=== PATIENT | female | born 1980 | race Caucasian/White ===

== ENCOUNTER 2017-08-20 10:03 | Emergency (ER) | payer BC ==
[2017-08-20 10:15] VITALS: TEMP 97.9
[2017-08-20] MEDS ORDERED: ALUM & MAG HYDROX-SIMETHICONE 30 ML, LIDOCAINE VISCOUS 2% 15 ML PO ONE ×2 (10:16)
[2017-08-20] MEDS ORDERED: ALUM & MAG HYDROX-SIMETHICONE 30 ML UD ONE (10:16)
[2017-08-20] MEDS ORDERED: ONDANSETRON ODT 8 MG TAB SL ONE (10:16)
[2017-08-20] MEDS ORDERED: LIDOCAINE HCL 2% (MOUTH-THROAT) 15 ML UD ONE (10:16)
[2017-08-20] MEDS ORDERED: SUCRALFATE 1 GM/10 ML 1 GM UD PO ONE (10:16)
--- NOTE | 2017-08-20 10:49 | RAD ---
EXAM DESCRIPTION: Obstructive series, 3 radiographs CLINICAL HISTORY: Epigastric abdominal pain. Shortness of breath FINDINGS/ IMPRESSION: Normal cardiomediastinal silhouette. No pulmonary edema, alveolar infiltrate or effusion Scattered large and small intestinal bowel gas without evidence of mechanical bowel obstruction. Moderate amount of stool in the colon, constipation. No organomegaly or obvious abdominal mass lesion. Surgical clips from previous cholecystectomy Electronically signed by: Reg Banuelos MD 08/20/2017 10:47 AM CDT
--- NOTE | 2017-08-20 11:49 | ED.PDOC ---
History of Present Illness - General Chief Complaint: Abdominal Pain Stated Complaint: midepigastric pain Time Seen by Provider: 08/20/17 10:12 Source: patient Exam Limitations: no limitations - History of Present Illness Initial Comments: the patient is a 36-year-old female presenting to the emergency room secondary to an episode of epigastric discomfort that was severe this morning coming on fairly abruptly. She has had multiple episodes like this over the last years. She has had multiple workups and is currently still undergoing workup with gastroenterology. She recently had a CT scan of her abdomen and pelvis along with an upper endoscopy failed to show any definitive problem. 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 She had a gallbladder taken out 4 years ago and has apparently had episodes since that time. She has been unable to tie it to any dietary changes. She did take a dose of tizanidine, and Advil this morning for her back issues. She has been on tizanidine for the last 3 years. She does not currently have anything to take to help with the pain when it occurs.she is not actually having any chest pain. When the pain is at its worst it does seem to take her breath away and she oxygenates just fine. No evidence of any arrhythmia on telemetry.the pain radiates from the epigastric and just right of the epigastric area through to her back to about 3 inches lateral of the spine on the right at the same level. Timing/Duration: 1/2 hour Severity: severe Improving Factors: nothing Worsening Factors: nothing Associated Symptoms: diaphoresis, loss of appetite, malaise, nausea/vomiting Allergies/Adverse Reactions: Allergies Morphine Adverse Reaction (Verified 12/19/13 13:57) Home Medications: Ambulatory Orders Escitalopram [Lexapro] 10 mg PO DAILY 12/02/13 Fexofenadine-Pseudoephedrine [Brianna-D 24 Hour Allergy 180-240 mg] 1 tab PO DAILY 12/02/13 Fluticasone Prop 0.05% Nasal [Flonase Nasal [place]] 1 spray BNAS BID 12/02/13 Lorazepam [Ativan] 1 mg PO BID PRN 12/02/13 Acetaminophen W/ Codeine [Tylenol W/ CODEINE #3] 1 - 2 units PO Q6HRS PRN #30 12/19/13 Methylprednisolone [Medrol Dose Jose[place]] 4 mg PO DAILY 8 Days tab 11/07/14 tiZANidine [Zanaflex] 4 mg PO Q6-8H PRN #30 tab 12/19/13 Hyoscyamine Sulfate [Hyoscyamine Sulfate Odt] 0.125 mg PO Q6H PRN #20 tab Nitroglycerin [Nitrostat] 0.4 mg SL Q5MIN PRN #1 bottle 08/20/17 Ondansetron [Zofran Odt] 4 mg PO Q4H PRN #10 tab 08/20/17 Review of Systems - Review of Systems Constitutional: States: no symptoms reported EENTM: States: no symptoms reported Respiratory: States: no symptoms reported Cardiology: States: no symptoms reported Gastrointestinal/Abdominal: States: abdominal pain, nausea. Denies: vomiting Genitourinary: States: no symptoms reported Musculoskeletal: States: no symptoms reported Skin: States: no symptoms reported Neurological: States: no symptoms reported All other Systems: No Change from Baseline Past Medical History (General) - Patient Medical History Hx Stroke: No Hx Congestive Heart Failure: No Hx Diabetes: No Surgical History: appendectomy, cholecystectomy, Hysterectomy - Vaccination History Hx Influenza Vaccination: No Hx Pneumococcal Vaccination: No - Social History Hx Tobacco Use: Yes Hx Depression: Yes Family Medical History - Family History Mother Family History: No Known Living Status: Still Living Physical Exam - Physical Exam General Appearance: Alert, Anxious Eye Exam: bilateral normal Ears, Nose, Throat: hearing grossly normal, normal ENT inspection Neck: full range of motion, supple Respiratory: lungs clear, normal breath sounds, no respiratory distress, no accessory muscle use Cardiovascular/Chest: normal peripheral pulses, regular rate, rhythm, no edema Peripheral Pulses: radial,right: 2+, radial,left: 2+ Gastrointestinal/Abdominal: soft, other - she does have epigastric discomfort palpation. No rebound or peritoneal signs. Rectal Exam: deferred Back Exam: normal inspection, no CVA tenderness, no vertebral tenderness Extremity: normal range of motion, non-tender, normal inspection, no pedal edema , normal capillary refill Neurologic: shank stitcher II-XII nml as tested, alert, normal mood/affect, oriented x 3 Skin Exam: normal color Comments: Vital Signs - 24 hr 08/20/17 08/20/17 08/20/17 10:06 10:10 10:43 Temperature 97.9 F Pulse Rate [ 82 75 right brachial] Respiratory 20 14 18 Rate Blood Pressure 124/82 123/76 [right brachial ] O2 Sat by Pulse 100 97 Oximetry 08/20/17 11:17 Temperature Pulse Rate [ 66 right brachial] Respiratory 16 Rate Blood Pressure 113/60 [right brachial ] O2 Sat by Pulse 99 Oximetry Progress - Progress Progress: 08/20/17 11:59 the patient is a 36-year-old female presenting to emergency room secondary to severe acute onset epigastric pain with radiation towards the right back. The tentative diagnosis on this patient for these recurrent episodes is spasm of the sphincter of oddi. This does seem to fit her symptoms quite well upon review of this disorder. She does need to continue her workup with gastroenterology. To that end she will also be written for some sublingual nitroglycerin to use at the onset of any acute severe attack and she has been instructed on how to take this. Additionally she will be written for Zofran ODT 's for as needed use for a similar purpose. She will also be written for Levbid to take for the 24-48 hours during and after an attack to hopefully help reduce symptoms. All of these medications do of course come with the potential of side effects and she has not apparently tried these before so she will need to be mindful when she takes them. She does need follow-up with her primary care doctor later this week. If she is continuing to have some lingering symptoms then repeat lab work to test for liver function tests and pancreatic enzymes may be worthwhile. additionally the patient has been instructed to hold her tizanidine for at least a couple of weeks and see if this helps reduce frequency of these symptoms. It is possible that this medication may be causing some additional spasm of the sphincter of oddi. ER warnings were given for any significant worsening. - Results/Orders Results/Orders: acute abdominal series fails to show anysignificant acute pathology. She does have mild constipation. EKG shows normal sinus rhythm at a rate of 74 bpm. There is possibly very early right bundle branch block starting. She does have mild left atrial dilation. No acute ST segment changes concerning for ischemia. Laboratory Tests 08/20/17 08/20/17 08/20/17 10:25 10:25 10:25 WBC 8.2 RBC 4.67 Hgb 14.7 Hct 43.1 MCV 92.4 MCH 31.5 H MCHC 34.1 RDW 12.9 Plt Count 153 MPV 8.8 Absolute Neuts (auto) 5.70 Absolute Lymphs (auto) 1.90 Absolute Monos (auto) 0.40 Absolute Eos (auto) 0.20 Absolute Basos (auto) 0.00 Neutrophils % 69.7 Lymphocytes % 22.9 Monocytes % 4.9 Eosinophils % 2.0 Basophils % 0.5 PT 10.7 INR 0.920 PTT (SP) 33.5 D-Dimer, Quantitative 288 H* Sodium 138 Potassium 3.8 Chloride 106 Carbon Dioxide 25 Anion Gap 10.8 L BUN 17 Creatinine 0.74 BUN/Creatinine Ratio 23.0 H Random Glucose 106 H Serum Osmolality 277.6 Calcium 9.5 Total Bilirubin 0.6 AST 38 ALT 24 Alkaline Phosphatase 77 Creatine Kinase 49 CK-MB (CK-2) 1.2 CK-MB (CK-2) % Not Reportable Troponin I < 0.02 B-Natriuretic Peptide 27.8 Serum Total Protein 6.8 Albumin 4.6 Globulin 2.2 L Albumin/Globulin Ratio 2.1 H Amylase 56 Lipase Urine Color Urine Appearance Urine pH Ur Specific [place] Urine Protein Urine Glucose (UA) Urine Ketones Urine Blood Urine Nitrite Urine Bilirubin Urine Urobilinogen Ur Leukocyte Esterase Urine RBC Urine WBC Ur Epithelial Cells Urine Bacteria Urine HCG, Qual 08/20/17 08/20/17 08/20/17 10:25 11:11 11:15 WBC RBC Hgb Hct MCV MCH MCHC RDW Plt Count MPV Absolute Neuts (auto) Absolute Lymphs (auto) Absolute Monos (auto) Absolute Eos (auto) Absolute Basos (auto) Neutrophils % Lymphocytes % Monocytes % Eosinophils % Basophils % PT INR PTT (SP) D-Dimer, Quantitative Sodium Potassium Chloride Carbon Dioxide Anion Gap BUN Creatinine BUN/Creatinine Ratio Random Glucose Serum Osmolality Calcium Total Bilirubin AST ALT Alkaline Phosphatase Creatine Kinase CK-MB (CK-2) CK-MB (CK-2) % Troponin I B-Natriuretic Peptide Serum Total Protein Albumin Globulin Albumin/Globulin Ratio Amylase Lipase 41 Urine Color Yellow Urine Appearance Clear Urine pH 7.0 Ur Specific [place] 1.015 Urine Protein Negative Urine Glucose (UA) Negative Urine Ketones Negative Urine Blood Negative Urine Nitrite Negative Urine Bilirubin Negative Urine Urobilinogen 0.2 Ur Leukocyte Esterase Negative Urine RBC 0 Urine WBC 0 Ur Epithelial Cells 1-3 Urine Bacteria 0 Urine HCG, Qual Negative Departure - Departure Clinical Impression: Sphincter of Oddi dysfunction Disposition: Discharge to Home or Self Care Condition: Fair Departure Forms: ED Discharge - Pt. Copy, Patient Portal Self Enrollment Instructions: DI for Abdominal Pain-Adult Diet: regular diet Activity: increase activity as tolerated Referrals: ROCCO GRUBBS [Primary Care Provider] - 1-5 Days Prescriptions: Nitroglycerin [Nitrostat] 0.4 mg SL Q5MIN PRN #1 bottle PRN Reason: Abdominal Distress Hyoscyamine Sulfate [Hyoscyamine Sulfate Odt] 0.125 mg PO Q6H PRN #20 tab PRN Reason: Abdominal Distress Ondansetron [Zofran Odt] 4 mg PO Q4H PRN #10 tab PRN Reason: Vomiting Home Medications: Ambulatory Orders Escitalopram [Lexapro] 10 mg PO DAILY 12/02/13 Fexofenadine-Pseudoephedrine [Brianna-D 24 Hour Allergy 180-240 mg] 1 tab PO DAILY 12/02/13 Fluticasone Prop 0.05% Nasal [Flonase Nasal [place]] 1 spray BNAS BID 12/02/13 Lorazepam [Ativan] 1 mg PO BID PRN 12/02/13 Acetaminophen W/ Codeine [Tylenol W/ CODEINE #3] 1 - 2 units PO Q6HRS PRN #30 12/19/13 Methylprednisolone [Medrol Dose [place]] 4 mg PO DAILY 8 Days tab 12/19/13 tiZANidine [Zanaflex] 4 mg PO Q6-8H PRN #30 tab 12/19/13 Hyoscyamine Sulfate [Hyoscyamine Sulfate Odt] 0.125 mg PO Q6H PRN #20 tab Nitroglycerin [Nitrostat] 0.4 mg SL Q5MIN PRN #1 bottle 08/20/17 Ondansetron [Zofran Odt] 4 mg PO Q4H PRN #10 tab 08/20/17 Additional Instructions: the patient is a 36-year-old female presenting to emergency room secondary to severe acute onset epigastric pain with radiation towards the right back. The tentative diagnosis on this patient for these recurrent episodes is spasm of the sphincter of oddi. This does seem to fit her symptoms quite well upon review of this disorder. She does need to continue her workup with gastroenterology. To that end she will also be written for some sublingual nitroglycerin to use at the onset of any acute severe attack and she has been instructed on how to take this. Additionally she will be written for Zofran ODT 's for as needed use for a similar purpose. She will also be written for Levbid to take for the 24-48 hours during and after an attack to hopefully help reduce symptoms. All of these medications do of course come with the potential of side effects and she has not apparently tried these before so she will need to be mindful when she takes them. She does need follow-up with her primary care doctor later this week. If she is continuing to have some lingering symptoms then repeat lab work to test for liver function tests and pancreatic enzymes may be worthwhile. additionally the patient has been instructed to hold her tizanidine for at least a couple of weeks and see if this helps reduce frequency of these symptoms. It is possible that this medication may be causing some additional spasm of the sphincter of oddi. ER warnings were given for any significant worsening.
[2017-08-20 11:54] VITALS: O2SAT 96
[2017-08-20 12:36] VITALS: BP 103/63
== END 2017-08-20 12:14 | disposition home or self-care (01) ==
LOC: ER 10:03
DX: K83.0 Cholangitis (principal); Z87.891 Personal history of nicotine dependence; Z88.6 Allergy status to analgesic agent

== ENCOUNTER 2018-12-04 20:44 | Emergency (ER) | payer BC, OTHER ==
[2018-12-04 20:55] VITALS: TEMP 97.9
[2018-12-04] MEDS ORDERED: diazePAM 5 MG TAB PO ONE (21:43)
[2018-12-04] MEDS ORDERED: PROMETHAZINE HCL 25 MG TAB PO ONE (21:43)
[2018-12-04] MEDS ORDERED: KETOROLAC TROMETHAMINE INJ 30 MG/ML VIAL IM ONE (21:43)
[2018-12-04 21:57] VITALS: O2SAT 96
--- NOTE | 2018-12-04 21:59 | ED.PDOC ---
History of Present Illness - General Chief Complaint: Headache Stated Complaint: headache Time Seen by Provider: 12/04/18 20:44 Source: patient Exam Limitations: no limitations - History of Present Illness Initial Comments: the patient is a 38-year-old female presenting to the emergency room secondary to a worsening today of her chronic refractory headaches. The patient has had numerous vague neurological symptoms tied to her headaches over the last year. She has seen at least 5 specialist over the last year. 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 She just started the steroid today. Headache is in the typical pattern however little bit worse in severity. She does have tightness to her posterior occipital area. She also has what sounds like a mild neuralgic component tothe left side of her face extending from her ear. She reports that her Cymbalta does help a little bit. She also takes Robaxin and Ativan. She takes Motrin as well.the patient has had several MRIs and CTs as well. Timing/Duration: unsure - constant but worse today Severity: severe Improving Factors: nothing Worsening Factors: movement Associated Symptoms: loss of appetite Allergies/Adverse Reactions: Allergies Morphine Adverse Reaction (Verified 12/19/13 13:57) Home Medications: Ambulatory Orders Escitalopram [Lexapro] 10 mg PO DAILY 12/02/13 Fexofenadine-Pseudoephedrine [Brianna-D 24 Hour Allergy 180-240 mg] 1 tab PO DAILY 12/02/13 Fluticasone Prop 0.05% Nasal [Flonase Nasal [place]] 1 spray BNAS BID 12/02/13 Lorazepam [Ativan] 1 mg PO BID PRN 12/02/13 Acetaminophen W/ Codeine [Tylenol W/ CODEINE #3] 1 - 2 units PO Q6HRS PRN #30 12/19/13 Methylprednisolone [Medrol Dose [place]] 4 mg PO DAILY 8 Days tab 12/19/13 tiZANidine [Zanaflex] 4 mg PO Q6-8H PRN #30 tab 12/19/13 Hyoscyamine Sulfate [Hyoscyamine Sulfate Odt] 0.125 mg PO Q6H PRN #20 tab 08/20/17 Nitroglycerin [Nitrostat] 0.4 mg SL Q5MIN PRN #1 bottle 08/20/17 Ondansetron [Zofran Odt] 4 mg PO Q4H PRN #10 tab 08/20/17 Acetazolamide 125 mg PO BID #30 tab 12/04/18 Baclofen 5 mg PO Q8HR PRN #45 tab 12/04/18 Review of Systems - Review of Systems Constitutional: States: no symptoms reported EENTM: States: nose congestion Respiratory: States: no symptoms reported Cardiology: States: no symptoms reported Gastrointestinal/Abdominal: States: no symptoms reported Genitourinary: States: no symptoms reported Musculoskeletal: States: no symptoms reported Skin: States: no symptoms reported Neurological: States: see HPI, headache, paresthesia Endocrine: States: no symptoms reported All other Systems: No Change from Baseline Past Medical History (General) - Patient Medical History Hx Stroke: No Hx Congestive Heart Failure: No Hx Diabetes: No Surgical History: appendectomy, cholecystectomy, tonsillectomy, Hysterectomy - Vaccination History Hx Influenza Vaccination: No Hx Pneumococcal Vaccination: No - Social History Hx Tobacco Use: Yes Hx Depression: Yes Family Medical History - Family History Mother Family History: No Known Living Status: Still Living Physical Exam - Physical Exam General Appearance: Alert, Other - uncomfortable. She prefers the lights off. Eye Exam: bilateral normal Ears, Nose, Throat: hearing grossly normal, normal pharynx Neck: full range of motion, other - [place] occipital tenderness to palpation. Respiratory: no respiratory distress, no accessory muscle use Cardiovascular/Chest: normal peripheral pulses, no edema Peripheral Pulses: radial,right: 2+, radial,left: 2+ Gastrointestinal/Abdominal: non tender, soft Rectal Exam: deferred Extremity: normal range of motion, no pedal edema, normal capillary refill Neurologic: pitch flaker II-XII nml as tested, alert, normal mood/affect, oriented x 3 Skin Exam: normal color Comments: Vital Signs - 24 hr 12/04/18 12/04/18 20:48 21:44 Temperature 97.9 F Pulse Rate [ 86 68 Left Apical] Respiratory 18 14 Rate Blood Pressure 126/84 123/78 [Left Arm] O2 Sat by Pulse 98 96 Oximetry Progress - Progress Progress: 12/04/18 22:04 the patient is a 38-year-old female presenting to the emergency room secondary to an acute exacerbation of her chronic headaches. Source of the headaches is not entirely certain. she is apparently working with multiple specialists to try and address this. There does at least appear to be a tension component based on the occipital symptoms. I would recommend that she see a neurologist and try Botox injections to help with that part of it. There does appear to be a neuralgia component as well to the left side of the face. The Cymbalta that she is on may be helping with that and they can look towards increasing the dose of that medication to help her in the long run. Along those same lines, a trial of a month or so of Valtrex may help to reduce symptoms the neuralgia is indeed being exacerbated by a viral origin. I do recommend that she complete her course of steroid and antibiotic for the sphenoid cyst. Certainly a large enough cyst in that area can cause significant varied symptoms. Additionally she may want to talk with her primary care doctor about getting tested for Lyme's disease. It can certainly cause recurrent headaches with varied symptoms as well, and can plague patients for an extended period of time. Tonight the patient is receiving a large dose of Toradol, a dose of oral Phenergan and a dose of oral Valium. This is simply abortive therapy for the current headache. I will write the patient for a trial of a week's worth of baclofen to take in place of her Robaxin to see if that helps more with her symp toms. She is not to combine these 2 medications. Additionally, after the patient has completed her course of steroid and antibiotic, if she is not doing better then she can fill a prescription for low-dose Acetazolamide to take for a couple of weeks to see if this impacts her headache frequency as well. ER warnings were given. Keep follow-up with specialists and primary care doctor. matt [email or web address] [id number] Departure - Departure Clinical Impression: Headache Qualifiers: Headache type: unspecified Headache chronicity pattern: chronic headache Intractability: intractable Qualified Code(s): R51 - Headache Disposition: Discharge to Home or Self Care Condition: Fair Departure Forms: ED Discharge - Pt. Copy, Patient Portal Self Enrollment Diet: regular diet Activity: increase activity as tolerated Referrals: Corby Esquivel MD [Primary Care Provider] - 1-2 Weeks Prescriptions: Baclofen 5 mg PO Q8HR PRN #45 tab PRN Reason: Muscle Spasms Acetazolamide 125 mg PO BID #30 tab Home Medications: Ambulatory Orders Escitalopram [Lexapro] 10 mg PO DAILY 12/02/13 Fexofenadine-Pseudoephedrine [Brianna-D 24 Hour Allergy 180-240 mg] 1 tab PO DAILY 12/02/13 Fluticasone Prop 0.05% Nasal [Flonase Nasal [place]] 1 spray BNAS BID 12/02/13 Lorazepam [Ativan] 1 mg PO BID PRN 12/02/13 Acetaminophen W/ Codeine [Tylenol W/ CODEINE #3] 1 - 2 units PO Q6HRS PRN #30 12/19/13 Methylprednisolone [Medrol Dose [place]] 4 mg PO DAILY 8 Days tab 12/19/13 tiZANidine [Zanaflex] 4 mg PO Q6-8H PRN #30 tab 12/19/13 Hyoscyamine Sulfate [Hyoscyamine Sulfate Odt] 0.125 mg PO Q6H PRN #20 tab 08/20/17 Nitroglycerin [Nitrostat] 0.4 mg SL Q5MIN PRN #1 bottle 08/20/17 Ondansetron [Zofran Odt] 4 mg PO Q4H PRN #10 tab 08/20/17 Acetazolamide 125 mg PO BID #30 tab 12/04/18 Baclofen 5 mg PO Q8HR PRN #45 tab 12/04/18 Additional Instructions: the patient is a 38-year-old female presenting to the emergency room secondary to an acute exacerbation of her chronic headaches. Source of the headaches is not entirely certain. she is apparently working with multiple specialists to try and address this. There does at least appear to be a tension component based on the occipital symptoms. I would recommend that she see a neurologist and try Botox injections to help with that part of it. There does appear to be a neuralgia component as well to the left side of the face. The Cymbalta that she is on may be helping with that and they can look towards increasing the dose of that medication to help her in the long run. Along those same lines, a trial of a month or so of Valtrex may help to reduce symptoms the neuralgia is indeed being exacerbated by a viral origin. I do recommend that she complete her course of steroid and antibiotic for the sphenoid cyst. Certainly a large enough cyst in that area can cause significant varied symptoms. Additionally she may want to talk with her primary care doctor about getting tested for Lyme's disease. It can certainly cause recurrent headaches with varied symptoms as well, and can plague patients for an extended period of time. Tonight the patient is receiving a large dose of Toradol, a dose of oral Phenergan and a dose of oral Valium. This is simply abortive therapy for the current headache. I will write the patient for a trial of a week's worth of baclofen to take in place of her Robaxin to see if that helps more with her symptoms. She is not to combine these 2 medications. Additionally, after the patient has completed her course of steroid and antibiotic, if she is not doing better then she can fill a prescription for low-dose Acetazolamide to take for a couple of weeks to see if this impacts her headache frequency as well. ER warnings were given. Keep follow-up with specialists and primary care doctor.
[2018-12-04 22:09] VITALS: BP 115/69
== END 2018-12-04 22:20 | disposition home or self-care (01) ==
LOC: ER 20:44
DX: R51 Headache (principal); R20.2 Paresthesia of skin; J34.1 Cyst and mucocele of nose and nasal sinus; F32.9 Major depressive disorder, single episode, unspecified; Z87.891 Personal history of nicotine dependence; Z79.899 Other long term (current) drug therapy; Z88.5 Allergy status to narcotic agent
CPT/HCPCS: J1885; Q0169

== ENCOUNTER 2019-03-18 10:15 | Emergency (ER) | payer OTHER ==
--- NOTE | 2019-03-18 10:54 | ED.PDOC ---
History of Present Illness - General Chief Complaint: General Stated Complaint: Head, neck, chest discomfort Time Seen by Provider: 03/18/19 10:19 Source: patient Exam Limitations: no limitations - History of Present Illness Initial Comments: The patient is a 38-year-old female presents emergency room secondary to multiple symptoms. I have seen this patient twice before over the last couple of years. Each time the patient presents with varied and fairly difficult to explain symptoms. The patient has chronic abdominal pain issues as well as chronic neck and headache pain issues. She reports having seen 2 neurologist in the past with CTs and MRIs with them. No definitive etiology for her headaches and neck pain has been found. She takes daily Cymbalta, Robaxin and Ativan. She does have depression issues which complicate the picture. Her affect is flat. The patient reports that she has been having vague chest discomfort that have radiated to her back and left shoulder for varying amounts of time over the last month. No real nausea or vomiting. Pain is dull. No palpitations. No shortness of breath. It is not worse with activity. The pain can come on with activity or when she is at rest. It does not matter if she is lying sitting or standing. No syncope. Additionally the patient is reporting an acute exacerbation of her chronic neck pain. She reports that she simply turned her head to the left a couple of nights ago and has had persistent pain at the atlantooccipital joint primarily on the left but now with some irritation to the right as well. No new focal neurological changes. No trauma. Timing/Duration: unsure Severity: mild Improving Factors: nothing Worsening Factors: movement - Of the head Associated Symptoms: chest pain, headaches, malaise Allergies/Adverse Reactions: Allergies Morphine Adverse Reaction (Verified 03/18/19 10:43) Home Medications: Ambulatory Orders Escitalopram [Lexapro] 10 mg PO DAILY 12/02/13 Fexofenadine-Pseudoephedrine [Brianna-D 24 Hour Allergy 180-240 mg] 1 tab PO DAILY 12/02/13 Fluticasone Prop 0.05% Nasal [Flonase Nasal [place]] 1 spray BNAS BID 12/02/13 Lorazepam [Ativan] 1 mg PO BID PRN 12/02/13 Sucralfate Tab [Carafate Tab] 1 gm PO QID #60 tab 03/18/19 predniSONE [Prednisone] 20 mg PO DAILY #3 tab 03/18/19 Review of Systems - Review of Systems Constitutional: States: malaise EENTM: States: ear pain - Ear fullness Respiratory: States: no symptoms reported Cardiology: States: chest pain Gastrointestinal/Abdominal: States: no symptoms reported Genitourinary: States: no symptoms reported Musculoskeletal: States: back pain, neck pain Skin: States: no symptoms reported Neurological: States: see HPI, depressed Endocrine: States: no symptoms reported All other Systems: No Change from Baseline Past Medical History (General) - Patient Medical History Hx Stroke: No Hx Congestive Heart Failure: No Hx Diabetes: No - Vaccination History Hx Influenza Vaccination: No Hx Pneumococcal Vaccination: No - Social History Hx Tobacco Use: Yes Hx Depression: Yes Family Medical History - Family History Mother Family History: No Known Living Status: Still Living Physical Exam - Physical Exam General Appearance: Alert, No apparent distress Eye Exam: bilateral normal Ears, Nose, Throat: hearing grossly normal, other - There is pressure behind bilateral tympanic membranes but no obvious infection. Neck: other - Mild tenderness to palpation to the left side of the occipital base. No gross deformity. No obvious instability. No central tenderness to palpation. Respiratory: lungs clear, normal breath sounds, no respiratory distress, no accessory muscle use Cardiovascular/Chest: normal peripheral pulses, regular rate, rhythm, no edema Peripheral Pulses: radial,right: 2+, radial,left: 2+ Gastrointestinal/Abdominal: non tender, soft Rectal Exam: deferred Back Exam: other - Mild diffuse discomfort to palpation over her back which is not new. No obvious new deformity. 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 No obvious gross muscle weakness or sensory loss. Skin Exam: normal color Comments: Vital Signs - 24 hr 03/18/19 03/18/19 10:20 10:49 Temperature 97.3 F L Pulse Rate [ 68 74 Apical] Respiratory 16 16 Rate Blood Pressure 113/78 129/84 [Left Arm] O2 Sat by Pulse 100 98 Oximetry Progress - Progress Progress: 03/18/19 11:50 The patient is a 38-year-old female presenting with several different issues. The first is what appears to be a mild acute myofascial strain primarily to the left upper paracervical musculature. The patient received a dose of Toradol and prednisone here. She is going to be placed on 3 additional days of prednisone as an outpatient. She is already taking Ativan and Robaxin as muscle relaxers. Topical heat, stretching may help as well. The patient also presented with atypical chest pain of an extended intermittent duration. EKG, lab work and chest x-rays are reassuring. This is unlikely of a cardiac source. There is a possibility this may be coming from the upper intestinal tract with referral so the patient is going to be written for some Carafate for the next few weeks as a trial. If her symptoms are not improving then she can see her primary care doctor about getting set up for an exercise tolerance test, though her risk factors seem low. I do recommend that she follow-up with her primary care doctor within a week or 2. ER warnings were given. matt [email or web address] [id number] - Results/Orders Results/Orders: 03/18/19 10:42 Telemetry .CONTINUOUS Vital Signs-Tilt PRN 03/18/19 10:45 EKG STAT normal sinus rhythm at 75 bpm. Borderline right axis. Normal R wave progression. Early right bundle branch block. No definitive ST segment or T wave changes indicative of acute ischemia. Normal QT interval. Chest x-ray is read as possibly mild chronic interstitial process bilaterally. No definitive acute infiltrates. No evidence of CHF or pneumothorax. No obvious masses. No effusions. Laboratory Results - last 24 hr 03/18/19 03/18/19 03/18/19 10:00 10:00 10:00 WBC 5.9 RBC 4.89 Hgb 15.5 Hct 45.4 MCV 92.8 MCH 31.7 H MCHC 34.2 RDW 12.8 Plt Count 178 MPV 8.2 Absolute Neuts (auto) 3.00 Absolute Lymphs (auto) 2.20 Absolute Monos (auto) 0.40 Absolute Eos (auto) 0.20 Absolute Basos (auto) 0.10 Neutrophils % 51.4 Lymphocytes % 37.1 Monocytes % 7.2 Eosinophils % 3.3 Basophils % 1.0 Sodium 141 Potassium 4.0 Chloride 106 Carbon Dioxide 30 Anion Gap 9.0 L BUN 21 H Creatinine 0.70 BUN/Creatinine Ratio 30.0 H Random Glucose 91 Serum Osmolality 283.8 Calcium 9.6 Magnesium 1.9 Total Bilirubin 0.5 AST 19 ALT 23 Alkaline Phosphatase 73 Creatine Kinase 38 CK-MB (CK-2) 1.2 CK-MB (CK-2) % Not Reportable Troponin I < 0.02 B-Natriuretic Peptide 5.9 Serum Total Protein 7.3 Albumin 4.4 Globulin 2.9 Albumin/Globulin Ratio 1.5 TSH 1.10 Serum HCG, Qual Negative Departure - Departure Clinical Impression: Atypical chest pain Acute cervical myofascial strain Qualifiers: Encounter type: initial encounter Qualified Code(s): S16.1XXA - Strain of mu scle, fascia and tendon at neck level, initial encounter Disposition: Discharge to Home or Self Care Condition: Fair Departure Forms: ED Discharge - Pt. Copy, Patient Portal Self Enrollment Diet: bland diet Activity: increase activity as tolerated Referrals: Corby Esquivel MD [Primary Care Provider] - 1-2 Weeks Prescriptions: predniSONE [Prednisone] 20 mg PO DAILY #3 tab Sucralfate Tab [Carafate Tab] 1 gm PO QID #60 tab Home Medications: Ambulatory Orders Escitalopram [Lexapro] 10 mg PO DAILY 12/02/13 Fexofenadine-Pseudoephedrine [Brianna-D 24 Hour Allergy 180-240 mg] 1 tab PO DAILY 12/02/13 Fluticasone Prop 0.05% Nasal [Flonase Nasal [place]] 1 spray BNAS BID 12/02/13 Lorazepam [Ativan] 1 mg PO BID PRN 12/02/13 Sucralfate Tab [Carafate Tab] 1 gm PO QID #60 tab 03/18/19 predniSONE [Prednisone] 20 mg PO DAILY #3 tab 03/18/19 Additional Instructions: The patient is a 38-year-old female presenting with several different issues. The first is what appears to be a mild acute myofascial strain primarily to the left upper paracervical musculature. The patient received a dose of Toradol and prednisone here. She is going to be placed on 3 additional days of prednisone as an outpatient. She is already taking Ativan and Robaxin as muscle relaxers. Topical heat, stretching may help as well. The patient also presented with atypical chest pain of an extended intermittent duration. EKG, lab work and chest x-rays are reassuring. This is unlikely of a cardiac source. There is a possibility this may be coming from the upper intestinal tract with referral so the patient is going to be written for some Carafate for the next few weeks as a trial. If her symptoms are not improving then she can see her primary care doctor about getting set up for an exercise tolerance test, though her risk factors seem low. I do recommend that she follow-up with her primary care doctor within a week or 2. ER warnings were given.
[2019-03-18 10:56] VITALS: O2SAT 98
--- NOTE | 2019-03-18 11:23 | RAD ---
EXAM DESCRIPTION: Cervical Spine, 2-3 Views CLINICAL HISTORY: atypical chest pains COMPARISON: None. IMPRESSION: 3 views of the cervical spine show vertebral body heights to be maintained. Mild disc space narrowing at C5-6 and C6-7 suggest mild disc degenerative disease. Straightening of the normal cervical lordosis is seen with no abnormal increase in prevertebral soft tissues. C1-2 relationship appears maintained and unremarkable. Electronically signed by: Margarito Marshall MD 03/18/2019 11:21 AM [facility]
--- NOTE | 2019-03-18 11:25 | RAD ---
EXAM DESCRIPTION: Chest,2 Views: CR/ CLINICAL HISTORY: 38 years Female atypical chest pains COMPARISON: 1 view chest September 2006. TECHNIQUE: Two views. PA and Lateral. FINDINGS: Lungs: Well-inflated with no acute consolidation, but minimal interstitial process bilaterally.. Pleural spaces: No effusion or pneumothorax bilaterally. Heart: Normal size. Pulmonary Vascularity: Not increased. Mediastinum: Not widened. Aorta: Unremarkable. Bony Thorax/Spine: No acute bony thoracic abnormalities. IMPRESSION: Minimal interstitial process bilaterally is probably chronic. Progressed since 2006. This could be related to cigarette smoking or environmental exposure, or chronic bronchitis. Bacterial infiltrate is unlikely. Cardiopulmonary vascular structures are unremarkable. Electronically signed by: Dario Singh MD 03/18/2019 11:24 AM [facility]
[2019-03-18] MEDS ORDERED: predniSONE 20 MG TAB PO ONE (11:42)
[2019-03-18] MEDS ORDERED: KETOROLAC TROMETHAMINE INJ 30 MG/ML VIAL IM ONE (11:42)
[2019-03-18 12:08] VITALS: BP 102/57; TEMP 97.1
== END 2019-03-18 12:08 | disposition home or self-care (01) ==
LOC: ER 10:15
DX: R07.89 Other chest pain (principal); S16.1XXA Strain of muscle, fascia and tendon at neck level, initial encounter; R51 Headache; H92.09 Otalgia, unspecified ear; I45.10 Unspecified right bundle-branch block; M54.9 Dorsalgia, unspecified; G89.29 Other chronic pain; F32.9 Major depressive disorder, single episode, unspecified; Z87.891 Personal history of nicotine dependence; Z88.5 Allergy status to narcotic agent; Z79.899 Other long term (current) drug therapy; X58.XXXA Exposure to other specified factors, initial encounter; Y92.9 Unspecified place or not applicable
CPT/HCPCS: 71046; 72040; 80053; 82550; 82553; 83735; 83880; 84443; 84484; 84703; 85025; 93005; J1885; J7512

== ENCOUNTER 2019-08-06 15:09 | Emergency (ER) | payer OTHER ==
[2019-08-06] MEDS ORDERED: diphenhydrAMINE HCL 50 MG/ML VIAL IV STA (15:37)
[2019-08-06] MEDS ORDERED: SODIUM CHLORIDE 0.9% 1000ML 1,000 ML IVS ONE (15:37)
[2019-08-06] MEDS ORDERED: METOCLOPRAMIDE HCL INJ 10 MG/2 ML VIAL IV ONE (15:37)
[2019-08-06] MEDS ORDERED: KETOROLAC TROMETHAMINE INJ 30 MG/ML VIAL IV ONE (15:37)
--- NOTE | 2019-08-06 16:01 | ED.PDOC ---
History of Present Illness - General Chief Complaint: General Stated Complaint: headache, chest pressure, n/v Time Seen by Provider: 08/06/19 15:20 Source: patient, RN notes reviewed, Vital Signs reviewed Exam Limitations: no limitations - History of Present Illness Initial Comments: The patient is a 38 year old who presents to the ED with headache and neck pain. She has been to the ED several times previously with vague symptoms. She has a history of chronic abdominal pain as well as chronic headache and neck pain. She is currently under the care of a neurologist in [place], has had multiple MRI/CT (last one year ago) without definitive etiology of her symptoms. She states that she is currently waiting for a blood patch but has not been able to get it yet. She says that she has been mostly bedbound for the past 9 months due to worsening headache when she stands. She notes that her symptoms became worse today and were not relieved by tylenol or muscle relaxants. She feels dizzy and has pain in her left arm as well. She also complains of chest pain that is worse when she lays flat. No shortness of breath, nausea/vomiting or other complaints at this time. Allergies/Adverse Reactions: Allergies Morphine Adverse Reaction (Verified 03/18/19 10:43) Home Medications: Ambulatory Orders Escitalopram [Lexapro] 10 mg PO DAILY 12/02/13 Fexofenadine-Pseudoephedrine [Brianna-D 24 Hour Allergy 180-240 mg] 1 tab PO DAILY 12/02/13 Fluticasone Prop 0.05% Nasal [Flonase Nasal [place]] 1 spray BNAS BID 12/02/13 Lorazepam [Ativan] 1 mg PO BID PRN 12/02/13 Sucralfate Tab [Carafate Tab] 1 gm PO QID #60 tab 03/18/19 predniSONE [Prednisone] 20 mg PO DAILY #3 tab 03/18/19 Acetaminophen W/ Codeine [Tylenol W/ CODEINE #3] 1 ea PO Q4H PRN #20 08/06/19 Prednisone 60 mg PO DAILY #15 tab 08/06/19 Review of Systems - Review of Systems Constitutional: States: malaise, weakness - generalized EENTM: States: no symptoms reported Respiratory: Denies: cough, short of breath Cardiology: States: chest pain, palpitations. Denies: syncope Gastrointestinal/Abdominal: Denies: abdominal pain, diarrhea, nausea, vomiting Genitourinary: Denies: discharge, dysuria, frequency, hematuria Musculoskeletal: States: back pain, muscle pain, muscle stiffness Skin: States: no symptoms reported Neurological: States: depressed, headache, weakness - left arm Endocrine: States: no symptoms reported Hematologic/Lymphatic: States: no symptoms reported All other Systems: Reviewed and Negative Past Medical History (General) - Patient Medical History Hx Stroke: No Hx Congestive Heart Failure: No Hx Diabetes: No Hx MRSA: No - Vaccination History Hx Influenza Vaccination: No Hx Pneumococcal Vaccination: No - Social History Hx Tobacco Use: Yes Hx Alcohol Use: No Hx Depression: Yes Family Medical History - Family History Mother Family History: No Known Living Status: Still Living Physical Exam - Physical Exam General Appearance: Alert, Anxious, No apparent distress Ears, Nose, Throat: normal ENT inspection Neck: non-tender, full range of motion, supple, normal inspection Respiratory: chest non-tender, lungs clear, normal breath sounds, no respiratory distress, no accessory muscle use Cardiovascular/Chest: normal peripheral pulses, regular rate, rhythm, no JVD Gastrointestinal/Abdominal: non tender, soft Rectal Exam: deferred Back Exam: normal inspection, no CVA tenderness Neurologic: no motor/sensory deficits, alert, oriented x 3, other - flat affect Progress - Progress Progress: 08/06/19 16:03 patient refuses medications for migraine including reglan and benadryl. 08/06/19 16:07 Reviewed [employer] aware, patient had 90 day supply of Ativan filled 07/2708/06/19 17:10 Patient reassessed, workup as below. No signs of acute coronary syndrome. Patient reports feeling better, already on ativan and muscle relaxants. Will add tylenol #3, prednisone x 3 days. She will continue outpatient follow up with her neurologist. Return indications reviewed. - Results/Orders Results/Orders: Laboratory Results - last 24 hr 08/06/19 08/06/19 08/06/19 15:46 15:46 15:46 WBC 7.3 RBC 4.76 Hgb 15.0 Hct 45.1 MCV 94.7 MCH 31.5 H MCHC 33.2 RDW 13.0 Plt Count 170 MPV 8.6 Absolute Neuts (auto) 4.00 Absolute Lymphs (auto) 2.60 Absolute Monos (auto) 0.40 Absolute Eos (auto) 0.30 Absolute Basos (auto) 0.10 Neutrophils % 54.9 Lymphocytes % 35.5 Monocytes % 5.3 Eosinophils % 3.6 Basophils % 0.7 Sodium 139 Potassium 3.9 Chloride 107 Carbon Dioxide 24 Anion Gap 11.9 L BUN 16 Creatinine 0.60 BUN/Creatinine Ratio 26.7 H Random Glucose 99 Serum Osmolality 278.8 Calcium 9.4 Troponin I < 0.02 Serum HCG, Qual 08/06/19 15:46 WBC RBC Hgb Hct MCV MCH MCHC RDW Plt Count MPV Absolute Neuts (auto) Absolute Lymphs (auto) Absolute Monos (auto) Absolute Eos (auto) Absolute Basos (auto) Neutrophils % Lymphocytes % Monocytes % Eosinophils % Basophils % Sodium Potassium Chloride Carbon Dioxide Anion Gap BUN Creatinine BUN/Creatinine Ratio Random Glucose Serum Osmolality Calcium Troponin I Serum HCG, Qual Negative - EKG/XRAY/CT Comments: 1514 NSR at 64, nl axis, nl interval, no STEMI Departure - Departure Clinical Impression: Neck pain, Paresthesias Headache Qualifiers: Headache type: unspecified Headache chronicity pattern: episodic headache Intractability: not intractable Qualified Code(s): R51 - Headache Time of Disposition: 17:13 Disposition: Discharge to Home or Self Care Condition: Fair Departure Forms: ED Discharge - Pt. Copy, Patient Portal Self Enrollment Instructions: Chronic Neck Pain (DC), Headache, Adult (DC), Chest Pain That Is Not Caused by the Heart (DC) Diet: resume usual diet Activity: increase activity as tolerated Referrals: Corby Esquivel MD [Primary Care Provider] - 1-2 Weeks Prescriptions: Acetaminophen W/ Codeine [Tylenol W/ CODEINE #3] 1 ea PO Q4H PRN #20 PRN Reason: Pain Prednisone 60 mg PO DAILY #15 tab Home Medications: Ambulatory Orders Escitalopram [Lexapro] 10 mg PO DAILY 12/02/13 Fexofenadine-Pseudoephedrine [Brianna-D 24 Hour Allergy 180-240 mg] 1 tab PO DAILY 12/02/13 Fluticasone Prop 0.05% Nasal [Flonase Nasal [place]] 1 spray BNAS BID 12/02/13 Lorazepam [Ativan] 1 mg PO BID PRN 12/02/13 Sucralfate Tab [Carafate Tab] 1 gm PO QID #60 tab 03/18/19 predniSONE [Prednisone] 20 mg PO DAILY #3 tab 03/18/19 Acetaminophen W/ Codeine [Tylenol W/ CODEINE #3] 1 ea PO Q4H PRN #20 08/06/19 Prednisone 60 mg PO DAILY #15 tab 08/06/19
[2019-08-06] MEDS ORDERED: HYDROcodone 5MG/APAP 325MG 1 EA TAB PO ONE (16:03)
[2019-08-06] MEDS ORDERED: METHOCARBAMOL 750 MG TAB PO ONE (16:03)
--- NOTE | 2019-08-06 16:06 | RAD ---
EXAM DESCRIPTION: Chest,1 View CLINICAL HISTORY: chest pain COMPARISON: March 18, 2019 FINDINGS: The cardiomediastinal silhouette is unremarkable. There is no airspace consolidation or pleural effusion. The bronchovascular markings are within normal limits, and the lungs are not hyperinflated. There is no pneumothorax or acute fracture. IMPRESSION: Negative exam. Electronically signed by: Choco Marin MD 08/06/2019 4:04 PM CDT
[2019-08-06 16:59] VITALS: TEMP 98.2
[2019-08-06] MEDS ORDERED: ALUM & MAG HYDROX-SIMETHICONE 30 ML UD ONE (17:30)
[2019-08-06] MEDS ORDERED: ALUM & MAG HYDROX-SIMETHICONE 30 ML UD PO ONE (17:34)
[2019-08-06 17:48] VITALS: BP 90/54; O2SAT 99
== END 2019-08-06 17:20 | disposition home or self-care (01) ==
LOC: ER 15:09
DX: R51 Headache (principal); M54.2 Cervicalgia; R20.2 Paresthesia of skin; R11.2 Nausea with vomiting, unspecified; F17.200 Nicotine dependence, unspecified, uncomplicated
CPT/HCPCS: 36415; 71045; 80048; 84484; 84703; 85025; 93005; J1200; J1885; J2765; J7030

== ENCOUNTER 2019-10-06 13:39 | Emergency (ER) | payer OTHER ==
[2019-10-06 13:52] VITALS: TEMP 98
[2019-10-06] MEDS ORDERED: NITROGLYCERIN 0.4 MG 25 EA TAB SL ONE (14:08)
--- NOTE | 2019-10-06 14:57 | RAD ---
Procedure: XR CHEST 1 VIEW Exam Date: 10/06/2019 Ordering Provider: Garry Edwards Clinical Indication: left chest pain Comparison: 08/06/2019 Findings: Cardiomediastinal silhouette is within normal limits. No focal lung consolidation. No pleural effusion. No pneumothorax. No acute osseous abnormality. Impression: 1. No acute abnormality in the chest. Electronically signed by: Ervin Medrano MD 10/06/2019 2:55 PM CDT
[2019-10-06] MEDS ORDERED: ALUM & MAG HYDROX-SIMETHICONE 30 ML, LIDOCAINE VISCOUS 2% 15 ML PO ONE ×2 (15:28)
--- NOTE | 2019-10-06 16:07 | ED.PDOC ---
History of Present Illness - General Chief Complaint: Chest Pain/HI Stated Complaint: chest pain Time Seen by Provider: 10/06/19 13:44 Source: patient Exam Limitations: no limitations - History of Present Illness Initial Comments: The patient is a 38-year-old female presented emergency room secondary to atypical chest pain beneath the left breast that started worsening this morning. The patient has had chest pain in that area multiple times in the past. She has seen cardiology in the past. We have done multiple sets of heart enzymes on her in the past. No definitive cardiac pathology has been found to this point. Chest pain started at rest. It is not made worse with any exertion. It is not made worse with movement of the arm, taking a deep breath or coughing. It is not made worse with palpation. The patient has had some GI dysfunction in the past and there has been question of esophagitis and gastritis in the past as well. No recent medication changes. The patient does have chronic issues with muscle spasms in different parts of her body. 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 Pain at its worst was about a 6 out of 10. As she relaxes here it drops down to about a 1 or 2 out of 10. The patient does have significant anxiety and depression issues related to her chronic medical issues. Again the patient has had a history of chronic intermittent recurrent chest pain not of cardiac origin. Timing/Duration: other - About 8 hours Severity: moderate Improving Factors: nothing Worsening Factors: nothing Associated Symptoms: chest pain Allergies/Adverse Reactions: Allergies Morphine Adverse Reaction (Verified 03/18/19 10:43) Home Medications: Ambulatory Orders Escitalopram [Lexapro] 10 mg PO DAILY 12/02/13 Fexofenadine-Pseudoephedrine [Brianna-D 24 Hour Allergy 180-240 mg] 1 tab PO DAILY 12/02/13 Fluticasone Prop 0.05% Nasal [Flonase Nasal [place]] 1 spray BNAS BID 12/02/13 Lorazepam [Ativan] 1 mg PO BID PRN 12/02/13 Sucralfate Tab [Carafate Tab] 1 gm PO QID #60 tab 03/18/19 predniSONE [Prednisone] 20 mg PO DAILY #3 tab 03/18/19 Acetaminophen W/ Codeine [Tylenol W/ CODEINE #3] 1 ea PO Q4H PRN #20 08/06/19 Prednisone 60 mg PO DAILY #15 tab 08/06/19 Review of Systems - Review of Systems Constitutional: States: no symptoms reported EENTM: States: no symptoms reported Respiratory: States: no symptoms reported Cardiology: States: see HPI Gastrointestinal/Abdominal: States: no symptoms reported Genitourinary: States: no symptoms reported Musculoskeletal: States: see HPI Skin: States: no symptoms reported Neurological: States: see HPI, anxiety, depressed, other - No current headache Endocrine: States: no symptoms reported All other Systems: No Change from Baseline Past Medical History (General) - Patient Medical History Hx Seizures: No Hx Stroke: No Hx Dementia: No Hx Asthma: No Hx of COPD: No Hx Cardiac Disorders: No Hx Congestive Heart Failure: No Hx Pacemaker: No Hx Hypertension: No Hx Thyroid Disease: No Hx Diabetes: No Hx Gastroesophageal Reflux: No Hx Renal Disease: No Hx Cancer: No Hx of HIV: No Hx Hepatitis C: No Hx MRSA: No Surgical History: appendectomy, cholecystectomy, tonsillectomy, Hysterectomy - Vaccination History Hx Tetanus, Diphtheria Vaccination: No Hx Influenza Vaccination: No Hx Pneumococcal Vaccination: No - Social History Hx Tobacco Use: Yes - Half a pack a day Hx Chewing Tobacco Use: No Hx Alcohol Use: No Hx Substance Use: No Hx Substance Use Treatment: No Hx Depression: No Feels Threatened In Home Enviroment: No Feels Threatened In a Relationship: No Hx Physical Abuse: No Hx Emotional Abuse: No Hx Suspected Abuse: No - Female History Patient is a Female of Child Bearing Age (10 -59 yrs old): Yes Patient : No Family Medical History - Family History Mother Family History: No Known Living Status: Still Living Physical Exam - Physical Exam General Appearance: Alert, Anxious, No apparent distress Eye Exam: bilateral normal Ears, Nose, Throat: hearing grossly normal, normal ENT inspection Neck: full range of motion, supple Respiratory: lungs clear, normal breath sounds, no respiratory distress, no accessory muscle use Cardiovascular/Chest: normal peripheral pulses, regular rate, rhythm, no edema, other - Chest wall is nontender Peripheral Pulses: radial,right: 2+, radial,left: 2+ Gastrointestinal/Abdominal: non tender, soft Rectal Exam: deferred Back Exam: no CVA tenderness, no vertebral tenderness Extremity: normal range of motion, non-tender, normal inspection, no pedal edema, normal capillary refill Neurologic: underground foreman II-XII nml as tested, alert, normal mood/affect, oriented x 3 Skin Exam: normal color Comments: Vital Signs - 24 hr 10/06/19 10/06/19 10/06/19 13:47 14:45 15:00 Temperature 98.0 F Pulse Rate [ 84 71 70 Pulse OX] Respiratory 16 16 15 Rate Blood Pressure 125/82 107/66 107/64 [Left Arm] O2 Sat by Pulse 99 99 99 Oximetry Progress - Progress Progress: 10/06/19 16:09 The patient is a 38-year-old female presented emergency room secondary to atypical chest pain. EKG, chest x-ray and laboratory work are reassuring. This chest pain is less likely cardiac in origin. The patient does have a copy of her EKG and can follow-up with her full stack web developer. The chest pain is more likely radicular or neuropathic in origin given her history. The patient will try 1 of her muscle relaxers when she gets home. The patient deferred a trial of nitroglycerin here, given her history of chronic headaches. Vital signs have remained stable. The patient is feeling better at this point. ER warnings are given for any significant worsening. matt hendrix 747 - Results/Orders Results/Orders: EKG shows normal sinus rhythm at 73 bpm. Mild right axis with early right bundle branch block. Mild left atrial dilation. No ST segment or T wave changes indicative of acute ischemia. Normal QT interval. Chest x-ray appears benign. Laboratory Tests 10/06/19 10/06/19 10/06/19 13:56 13:56 13:56 WBC 8.5 RBC 4.41 Hgb 14.1 Hct 40.6 MCV 92.1 MCH 32.1 H MCHC 34.8 RDW 13.1 Plt Count 157 MPV 8.1 Absolute Neuts (auto) 5.20 Absolute Lymphs (auto) 2.60 Absolute Monos (auto) 0.40 Absolute Eos (auto) 0.30 Absolute Basos (auto) 0.10 Neutrophils % 61.1 Lymphocytes % 30.2 Monocytes % 5.1 Eosinophils % 3.0 Basophils % 0.6 PT 10.0 INR 1.01 PTT (SP) 25.9 D-Dimer, Quantitative < 131.0 L Sodium 136 Potassium 3.6 Chloride 103 Carbon Dioxide 25 Anion Gap 11.6 L BUN 18 Creatinine 0.68 BUN/Creatinine Ratio 26.5 H Random Glucose 102 Serum Osmolality 274.1 L Calcium 9.0 Magnesium 1.9 Total Bilirubin 0.4 AST 16 ALT 18 Alkaline Phosphatase 63 Creatine Kinase 36 CK-MB (CK-2) 1.2 CK-MB (CK-2) % Not Reportable Troponin I < 0.02 B-Natriuretic Peptide < 15.0 Serum Total Protein 6.4 Albumin 4.1 Globulin 2.3 Albumin/Globulin Ratio 1.8 Amylase 50 Lipase 33 TSH 0.61 Serum HCG, Qual Urine Color Urine Appearance Urine pH Ur Specific [place] Urine Protein Urine Glucose (UA) Urine Ketones Urine Blood Urine Nitrite Urine Bilirubin Urine Urobilinogen Ur Leukocyte Esterase Urine RBC Urine WBC Ur Epithelial Cells Urine Bacteria 10/06/19 10/06/19 13:56 14:23 WBC RBC Hgb Hct MCV MCH MCHC RDW Plt Count MPV Absolute Neuts (auto) Absolute Lymphs (auto) Absolute Monos (auto) Absolute Eos (auto) Absolute Basos (auto) Neutrophils % Lymphocytes % Monocytes % Eosinophils % Basophils % PT INR PTT (SP) D-Dimer, Quantitative Sodium Potassium Chloride Carbon Dioxide Anion Gap BUN Creatinine BUN/Creatinine Ratio Random Glucose Serum Osmolality Calcium Magnesium Total Bilirubin AST ALT Alkaline Phosphatase Creatine Kinase CK-MB (CK-2) CK-MB (CK-2) % Troponin I B-Natriuretic Peptide Serum Total Protein Albumin Globulin Albumin/Globulin Ratio Amylase Lipase TSH Serum HCG, Qual Negative Urine Color Yellow Urine Appearance Clear Urine pH 6.5 Ur Specific [place] 1.010 Urine Protein Negative Urine Glucose (UA) Negative Urine Ketones Negative Urine Blood Negative Urine Nitrite Negative Urine Bilirubin Negative Urine Urobilinogen 0.2 Ur Leukocyte Esterase Negative Urine RBC 0 Urine WBC 0 Ur Epithelial Cells 0-1 Urine Bacteria 0 Departure - Departure Clinical Impression: Atypical chest pain Disposition: Discharge to Home or Self Care Condition: Fair Departure Forms: ED Discharge - Pt. Copy, Patient Portal Self Enrollment Diet: bland diet Activity: increase activity as tolerated Referrals: Corby Esquivel MD [Primary Care Provider] - 1-2 Weeks Home Medications: Ambulatory Orders Escitalopram [Lexapro] 10 mg PO DAILY 12/02/13 Fexofenadine-Pseudoephedrine [Brianna-D 24 Hour Allergy 180-240 mg] 1 tab PO DAILY 12/02/13 Fluticasone Prop 0.05% Nasal [Flonase Nasal [place]] 1 spray BNAS BID 12/02/13 Lorazepam [Ativan] 1 mg PO BID PRN 12/02/13 Sucralfate Tab [Carafate Tab] 1 gm PO QID #60 tab 03/18/19 predniSONE [Prednisone] 20 mg PO DAILY #3 tab 03/18/19 Acetaminophen W/ Codeine [Tylenol W/ CODEINE #3] 1 ea PO Q4H PRN #20 08/06/19 Prednisone 60 mg PO DAILY #15 tab 08/06/19 Additional Instructions: The patient is a 38-year-old female presented emergency room secondary to atypical chest pain. EKG, chest x-ray and laboratory work are reassuring. This chest pain is less likely cardiac in origin. The patient does have a copy of her EKG and can follow-up with her full stack web developer. The chest pain is more likely radicular or neuropathic in origin given her history. The patient will try 1 of her muscle relaxers when she gets home. The patient deferred a trial of nitroglycerin here, given her history of chronic headaches. Vital signs have remained stable. The patient is feeling better at this point. ER warnings are given for any significant worsening.
[2019-10-06 16:19] VITALS: BP 105/73; O2SAT 94
== END 2019-10-06 16:19 | disposition home or self-care (01) ==
LOC: ER 13:39
DX: R07.89 Other chest pain (principal); I45.10 Unspecified right bundle-branch block; G89.29 Other chronic pain; F41.9 Anxiety disorder, unspecified; F32.9 Major depressive disorder, single episode, unspecified; Z90.49 Acquired absence of other specified parts of digestive tract; Z79.899 Other long term (current) drug therapy; Z88.5 Allergy status to narcotic agent

== ENCOUNTER 2019-12-25 14:10 | Emergency (ER) | payer OTHER ==
--- NOTE | 2019-12-25 15:10 | CT ---
EXAM DESCRIPTION: Head CLINICAL HISTORY: report left sided weakness x24 hrs COMPARISON: None TECHNIQUE: Noncontrast transaxial CT images of the head are obtained from base to vertex. This exam was performed according to our departmental dose-optimization program, which includes automated exposure control, adjustment of the mA and/or kV according to patient size and/or use of iterative reconstruction technique. FINDINGS: The midline structures are not displaced. The sulci are age appropriate. The lateral, third, and fourth ventricles are normal in size, shape, and anatomic positioning. There is no evidence of mass, mass effect, hydrocephalus, or acute intracranial hemorrhage. No abnormal extra axial fluid collections are seen. Normal caldwell-white differentiation is seen. The visualized bone windows show no depressed skull fracture or significant abnormality. The visualized paranasal sinuses and mastoid air cells are clear. IMPRESSION: 1. No acute abnormality is seen on noncontrast CT of the head. Electronically signed by: Margarito Marshall MD 12/25/2019 3:09 PM [facility]
--- NOTE | 2019-12-25 15:18 | CT ---
EXAM DESCRIPTION: Cervical Spine CLINICAL HISTORY: report left sided weakness x24 hrs COMPARISON: None available. TECHNIQUE: Axial noncontast CT of the cervical spine with coronal and sagittal reformats. This exam was performed according to our departmental dose-optimization program, which includes automated exposure control, adjustment of the mA and/or kV according to patient size and/or use of iterative reconstruction technique. FINDINGS: Cervical vertebral body heights are maintained. Mild reversal the normal cervical lordosis. No acute fracture or posttraumatic positional abnormality of the cervical spine. Mild disc space narrowing at C5-6 and C6-7. No spinal canal stenosis or foraminal encroachment. Soft tissues are unremarkable. 5 mm low-attenuation nodules of the left lobe thyroid are seen. No further imaging follow-up is recommended. IMPRESSION: No CT evidence of acute fracture or posttraumatic positional abnormality of the cervical spine. Mild disc degenerative disease from C5 through C7. Reversal the normal cervical lordosis could be secondary to patient positioning or muscle spasm. Electronically signed by: Margarito Marshall MD 12/25/2019 3:17 PM [facility] [id number]
[2019-12-25] MEDS ORDERED: DEXAMETHASONE 4 MG TAB PO ONE (15:28)
[2019-12-25] MEDS ORDERED: KETOROLAC TROMETHAMINE INJ 30 MG/ML VIAL IM ONE (15:28)
--- NOTE | 2019-12-25 15:31 | ED.PDOC ---
History of Present Illness - General Chief Complaint: General Stated Complaint: left sided weakness, left hip and lower back pain Time Seen by Provider: 12/25/19 14:13 Source: patient Exam Limitations: no limitations - History of Present Illness Initial Comments: The patient is a 39-year-old female presented emergency room secondary to worsening of some of her chronic neurological symptoms as well as development of some new neurological symptoms. The patient has had a very complicated history of atypical neurological symptoms. She sees a Dr. Saldana in [place] at [facility]. Due to the coronavirus she is unable to see them currently. She takes a combination of muscle relaxers. The patient reports that at night or 2 ago she turned over in bed and felt a pop towards the base of her neck and since that time she has had increased pain in the distribution of the left upper extremity, which is where she has had pain before. Additionally she has had so me pain shooting down her left lower extremity. On examination she actually does appear to have what is most likely a piriformis syndrome on the left. No step-off or focal tenderness to palpation over the spinous processes. No evidence of trauma. She does have mild inflammation over the left sacroiliac joint. There is no objective weakness just a sensation of it. No sensation loss. No syncope. No falls. The patient has had significant weight gain since last time I seen her. No focal tenderness to palpation over the neck. She is alert and oriented x4. The patient has had blood patches done in the past and was theorized at one point that the patient had a CSF leak. She reports that she is scheduled to see her neurologist coming month and have a CT myelogram done. No incontinence. No falls. Timing/Duration: 24 hours - To 48 hours Severity: moderate Improving Factors: nothing Worsening Factors: other - Standing up Associated Symptoms: headaches, malaise Allergies/Adverse Reactions: Allergies Morphine Adverse Reaction (Verified 12/25/19 14:36) Home Medications: Ambulatory Orders Escitalopram [Lexapro] 10 mg PO DAILY 12/02/13 Fexofenadine-Pseudoephedrine [Brianna-D 24 Hour Allergy 180-240 mg] 1 tab PO DAILY 12/02/13 Fluticasone Prop 0.05% Nasal [Flonase Nasal [place]] 1 spray BNAS BID 12/02/13 Lorazepam [Ativan] 1 mg PO BID PRN 12/02/13 Sucralfate Tab [Carafate Tab] 1 gm PO QID #60 tab 03/18/19 Acetaminophen W/ Codeine [Tylenol W/ CODEINE #3] 1 ea PO Q4H PRN #20 08/06/19 Dexamethasone [Decadron] 4 mg PO ACBK #5 tab 12/25/19 Review of Systems - Review of Systems Constitutional: States: malaise, other - No evidence of objective weakness but she feels a subjective weakness on her left side. EENTM: States: no symptoms reported Respiratory: States: no symptoms reported Cardiology: States: no symptoms reported Gastrointestinal/Abdominal: States: no symptoms reported Genitourinary: States: no symptoms reported Musculoskeletal: States: back pain Skin: States: no symptoms reported Neurological: States: see HPI, depressed Endocrine: States: no symptoms reported All other Systems: No Change from Baseline Past Medical History (General) - Patient Medical History Hx Seizures: No Hx Stroke: No Hx Dementia: No Hx Asthma: No Hx of COPD: No Hx Cardiac Disorders: No Hx Congestive Heart Failure: No Hx Pacemaker: No Hx Hypertension: No Hx Thyroid Disease: No Hx Diabetes: No Hx Gastroesophageal Reflux: No Hx Renal Disease: No Hx Cancer: No Hx of HIV: No Hx Hepatitis C: No Hx MRSA: No - Vaccination History Hx Tetanus, Diphtheria Vaccination: No Hx Influenza Vaccination: No Hx Pneumococcal Vaccination: No - Social History Hx Tobacco Use: Yes - Half a pack a day Hx Chewing Tobacco Use: No Hx Alcohol Use: No Hx Substance Use: No Hx Substance Use Treatment: No Hx Depression: No Hx Physical Abuse: No Hx Emotional Abuse: No Hx Suspected Abuse: No - Female History Patient : No Family Medical History - Family History Mother Family History: No Known Living Status: Still Living Physical Exam - Physical Exam General Appearance: Alert, No apparent distress Eye Exam: bilateral normal Ears, Nose, Throat: hearing grossly normal, normal pharynx Neck: non-tender, full range of motion, supple Respiratory: no respiratory distress, no accessory muscle use Cardiovascular/Chest: normal peripheral pulses, no edema Peripheral Pulses: radial,right: 2+, radial,left: 2+ Gastrointestinal/Abdominal: non tender, soft Rectal Exam: deferred Back Exam: no vertebral tenderness, other - See history of present illness. Extremity: no pedal edema, no calf tenderness, normal capillary refill, other - Pain in the area of the piriformis muscle with activation of the muscle and as well as with palpation. No crepitus. Neurologic: knot borer II-XII nml as tested, alert, oriented x 3, other - See history of present illness. Skin Exam: normal color Progress - Progress Progress: 12/25/19 15:34 The patient is a 39-year-old female with longstanding atypical headaches and neurological symptoms comes presenting with a worsening of her symptoms. This was likely exacerbated by cervical paraspinal myofascial strain from the night or 2 ago as well as with what appears to be piriformis syndrome on the left. Topical heat in both areas may prove beneficial. The patient is given a dose of Toradol here. She is also going to be put on Decadron for the next [address] scan of the head and cervical spine were reassuring. She does need to keep follow-up with her neurologist in the coming month. Gentle stretching may also prove beneficial. ER warnings are given for any significant worsening. matt hendrix [id number] - Results/Orders Results/Orders: CT scan of the head and cervical spine showed no acute pathology. No evidence of any herniation. No evidence of spinal cord compression. She does have some mild disc height loss in the lower cervical spine. See reports for details. Departure - Departure Clinical Impression: Piriformis syndrome of left side Acute cervical myofascial strain Qualifiers: Encounter type: initial encounter Qualified Code(s): S16.1XXA - Strain of muscle, fascia and tendon at neck level, initial encounter Disposition: Discharge to Home or Self Care Condition: Fair Departure Forms: ED Discharge - Pt. Copy, Patient Portal Self Enrollment Diet: regular diet Activity: increase activity as tolerated Referrals: Corby Esquivel MD [Primary Care Provider] - 1-2 Weeks Prescriptions: Dexamethasone [Decadron] 4 mg PO ACBK #5 tab Home Medications: Ambulatory Orders Escitalopram [Lexapro] 10 mg PO DAILY 12/02/13 Fexofenadine-Pseudoephedrine [Brianna-D 24 Hour Allergy 180-240 mg] 1 tab PO DAILY 12/02/13 Fluticasone Prop 0.05% Nasal [Flonase Nasal [place]] 1 spray BNAS BID 12/02/13 Lorazepam [Ativan] 1 mg PO BID PRN 12/02/13 Sucralfate Tab [Carafate Tab] 1 gm PO QID #60 tab 03/18/19 Acetaminophen W/ Codeine [Tylenol W/ CODEINE #3] 1 ea PO Q4H PRN #20 08/06/19 Dexamethasone [Decadron] 4 mg PO ACBK #5 tab 12/25/19 Additional Instructions: The patient is a 39-year-old female with longstanding atypical headaches and neurological symptoms comes presenting with a worsening of her symptoms. This was likely exacerbated by cervical paraspinal myofascial strain from the night or 2 ago as well as with what appears to be piriformis syndrome on the left. Topical heat in both areas may prove beneficial. The patient is given a dose of Toradol here. She is also going to be put on Decadron for the next [address] scan of the head and cervical spine were reassuring. She does need to keep follow-up with her neurologist in the coming month. Gentle stretching may also prove beneficial. ER warnings are given for any significant worsening.
[2019-12-25 15:35] VITALS: TEMP 98.4; O2SAT 98
[2019-12-25 16:20] VITALS: BP 100/65
== END 2019-12-25 16:20 | disposition home or self-care (01) ==
LOC: ER 14:10
DX: S16.1XXA Strain of muscle, fascia and tendon at neck level, initial encounter (principal); G57.02 Lesion of sciatic nerve, left lower limb; R51.9 Headache, unspecified; Z87.891 Personal history of nicotine dependence; Z79.899 Other long term (current) drug therapy; Z88.5 Allergy status to narcotic agent; X50.9XXA Other and unspecified overexertion or strenuous movements or postures, initial encounter; Y92.9 Unspecified place or not applicable
CPT/HCPCS: 70450; 72125; J1885; J8540